=== PATIENT | male | born 1965 | race Caucasian/White ===

== ENCOUNTER 2017-03-30 04:19 | Emergency (ER) | payer MEDICARE, MEDICAID ==
[~2017-03-30] VITALS: Ht 165.1 cm; Wt 82.0 kg
[~2017-03-30 04:19] MED LIST: AMLO2.5T45 PO; ASPI-1159 PO; ATOR-2 PO; FAMO20TA8 PO; METO100T16 PO; ONDA8TAB6 PO; PHEN100C12; VALP250C PO
[2017-03-30] MEDS ORDERED: PROCHLORPERAZINE MALEATE 10MG TABLET PO ONE (05:00)
[2017-03-30] MEDS ORDERED: DEXAMETHASONE 10 MG/ML VIAL IV ONE (05:00)
[2017-03-30] MEDS ORDERED: KETOROLAC 30MG/ML VIAL IV ONE (05:00)
[2017-03-30] MEDS ORDERED: DIPHENHYDRAMINE 50MG/ML VIAL IV ONE (05:00)
[2017-03-30 06:25] VITALS: BP 142/77
== END 2017-03-30 06:29 | disposition home or self-care (01) ==
LOC: ER 04:19
DX: R51 Headache (principal); E11.9 Type 2 diabetes mellitus without complications; I10 Essential (primary) hypertension; Z79.82 Long term (current) use of aspirin; Z86.73 Personal history of transient ischemic attack (TIA), and cerebral infarction without residual deficits
CPT/HCPCS: 96374; 96375; 99284; J1100; J1200; J1885; Q0164

== ENCOUNTER 2018-03-09 20:44 | Inpatient (IN) | payer MEDICARE, MEDICAID, OTHER ==
[~2018-03-09] VITALS: Ht 165.1 cm; Wt 74.8 kg
[2018-03-09 21:41] LABS: BASOPHILS % 0.6 % (0.0-2.0); EOSINOPHILS % 0.8 % (0.0-5.0); HEMATOCRIT. 41.5 % (42.0-52.0); HEMOGLOBIN. 14.6 g/dL (14.0-18.0); LYMPHOCYTES % 24.3 % (20.0-50.0); MEAN CORPUSCULAR HEMOGLOBIN 30.8 pg (28.0-32.0); MEAN CORPUSCULAR VOLUME 87.8 fL (80.0-94.0); MEAN PLATELET VOLUME 8.8 fl (7.4-10.4); MONOCYTES % 6.8 % (2.0-8.0); NEUTROPHILS % 67.5 % (40.0-76.0); PLATELET 219 x1000/uL (130-400); RED BLOOD CELL COUNT 4.73 mill/uL (4.7-6.1); RED CELL DISTRIBUTION WIDTH 12.6 % (11.6-14.6)
[2018-03-09 21:46] LABS: CHLORIDE 108 mEq/L (98-107)
[2018-03-09] MEDS ORDERED: ONDANSETRON HCL 4MG/2ML INJ IV STA (22:53)
[2018-03-09] MEDS ORDERED: ENALAPRIL 2.5MG/2ML VIAL 2ML IV ONE (23:00)
[2018-03-09] MEDS ORDERED: ASPIRIN 81MG TABLET PO ONE (23:00)
[2018-03-09] MEDS ORDERED: MORPHINE SULFATE 10 MG/ML CPJ IV ONE (23:00)
[2018-03-10] VITALS (7 sets, daily range): BP systolic 138–176; BP diastolic 85–92
[2018-03-10] MEDS ORDERED: DIPHENHYDRAMINE 50MG/ML VIAL IV PRN (00:45)
[2018-03-10] MEDS ORDERED: ACETAMINOPHEN 650MG/20.3ML UDC GT PRN (00:45)
[2018-03-10] MEDS ORDERED: NA PHOS,M-B/NA PHOS,DI-BA ENEMA 118ML PR PRN (00:45)
[2018-03-10] MEDS ORDERED: ONDANSETRON HCL 4MG/2ML INJ IV PRN (00:45)
[2018-03-10] MEDS ORDERED: IPRATROPIUM/ALBUTEROL 0.5-3(2.5)MG/3ML NEB INH PRN (00:45)
[2018-03-10] MEDS ORDERED: HYDROCODONE/ACETAMINOPHEN 5/325MG TABLET PO PRN (00:45)
[2018-03-10] MEDS ORDERED: GUAIFENESIN 200MG/10ML SUGAR FREE UDC PO PRN (00:45)
[2018-03-10] MEDS ORDERED: DOCUSATE SODIUM 100MG CAPSULE PO PRN (00:45)
[2018-03-10] MEDS ORDERED: ACETAMINOPHEN 650MG SUPP PR PRN (00:45)
[2018-03-10] MEDS: CLONIDINE 0.1MG TABLET PO PRN (01:29)
[2018-03-10] MEDS ORDERED: IOHEXOL-350 100 ML BOTTLE ONE (02:12)
[2018-03-10 02:22] LABS: CLARITY URINE CLEAR (CLEAR); COLOR URINE YELLOW (YELLOW); KETONES URINE NEGATIVE (NEGATIVE); LEUKOCYTE ESTERASE URINE NEGATIVE (NEGATIVE); NITRITE URINE NEGATIVE (NEGATIVE); OCCULT BLOOD URINE 1+ (NEGATIVE); PROTEIN URINE NEGATIVE (NEGATIVE); SPECIFIC GRAVITY URINE 1.011 (1.005-1.030)
[2018-03-10 02:34] LABS: *AMPHETAMINES SCREEN URINE NEGATIVE (NEGATIVE); *BARBITURATES SCREEN URINE NEGATIVE (NEGATIVE); *BENZODIAZEPINES SCREEN URINE NEGATIVE (NEGATIVE); *COCAINE SCREEN URINE NEGATIVE (NEGATIVE); METHADONE URINE SCREEN NEGATIVE (NEGATIVE)
[2018-03-10 02:35] LABS: CANNABINOID URINE SCREEN NEGATIVE (NEGATIVE); OPIATES URINE SCREEN NEGATIVE (NEGATIVE); PHENCYCLIDINE URINE SCREEN NEGATIVE (NEGATIVE)
[2018-03-10] MEDS ORDERED: MEDICATION NOT ON FORMULARY EA (Aspirin (Aspirin Low Dose) 1 TAB) PO SCH (10:45)
[2018-03-10] MEDS ORDERED: MEDICATION NOT ON FORMULARY EA (Amlodipine Besylate 1 TAB) PO SCH (10:45)
[2018-03-10] MEDS ORDERED: MEDICATION NOT ON FORMULARY EA (Atorvastatin Calcium 1 TAB) PO SCH (10:45)
[2018-03-10 11:18] LABS: CREATINE KINASE 52 IU/L (39-308)
[2018-03-10 11:19] LABS: CREATINE KINASE MB FRACTION < 1.0 ng/mL (0.5-3.6)
[2018-03-10] MEDS: PHENYTOIN SODIUM EXTENDED 100MG CAPSULE PO SCH (11:46)
[2018-03-10] MEDS: ASPIRIN 81MG TABLET PO SCH (11:47)
[2018-03-10] MEDS: VALPROIC ACID 250MG CAPSULE PO SCH (11:47)
[2018-03-10] MEDS: AMLODIPINE 2.5MG TABLET PO SCH (11:47)
[2018-03-10] MEDS: SODIUM CHLORIDE 0.9% INJ 3ML FLUSH IVF SCH ×2 (14:32→23:59)
[2018-03-10] MEDS ORDERED: KEPP500 MT (15:37)
[2018-03-10] MEDS ORDERED: GLIP1TAB5 MT (15:40)
[2018-03-10] MEDS ORDERED: BENA40TA9 MT (15:40)
[2018-03-10 15:46] LABS: BASOPHILS % 0.7 % (0.0-2.0); EOSINOPHILS % 1.3 % (0.0-5.0); HEMATOCRIT. 43.6 % (42.0-52.0); LYMPHOCYTES % 24.6 % (20.0-50.0); MEAN CORPUSCULAR HEMOGLOBIN 30.4 pg (28.0-32.0); MEAN CORPUSCULAR VOLUME 88.8 fL (80.0-94.0); MEAN PLATELET VOLUME 9.2 fl (7.4-10.4); MONOCYTES % 9.3 % (2.0-8.0); NEUTROPHILS % 64.1 % (40.0-76.0); PLATELET 213 x1000/uL (130-400); RED BLOOD CELL COUNT 4.91 mill/uL (4.7-6.1); RED CELL DISTRIBUTION WIDTH 12.8 % (11.6-14.6)
[2018-03-10 16:04] LABS: CHLORIDE 105 mEq/L (98-107)
[2018-03-10 16:17] LABS: CREATINE KINASE 62 IU/L (39-308)
[2018-03-10 16:19] LABS: CREATINE KINASE MB FRACTION < 1.0 ng/mL (0.5-3.6)
[2018-03-10] MEDS: ATORVASTATIN CALCIUM 40MG TABLET PO SCH (20:18)
[2018-03-10] MEDS: HYDROCODONE/ACETAMINOPHEN 10/325MG TABLET PO PRN (20:19)
[2018-03-11] VITALS (7 sets, daily range): BP systolic 130–177; BP diastolic 80–98
[2018-03-11] MEDS: HYDROCODONE/ACETAMINOPHEN 10/325MG TABLET PO PRN (00:16)
[2018-03-11] MEDS: CLONIDINE 0.1MG TABLET PO PRN ×3 (00:17→17:36)
[2018-03-11] MEDS: SODIUM CHLORIDE 0.9% INJ 3ML FLUSH IVF SCH ×3 (05:28→21:00)
[2018-03-11 07:26] LABS: CHLORIDE 103 mEq/L (98-107)
[2018-03-11 07:29] LABS: BASOPHILS % 0.5 % (0.0-2.0); EOSINOPHILS % 0.7 % (0.0-5.0); HEMATOCRIT. 43.9 % (42.0-52.0); HEMOGLOBIN. 15.1 g/dL (14.0-18.0); LYMPHOCYTES % 22.3 % (20.0-50.0); MEAN CORPUSCULAR HEMOGLOBIN 30.3 pg (28.0-32.0); MEAN CORPUSCULAR VOLUME 87.8 fL (80.0-94.0); MONOCYTES % 8.8 % (2.0-8.0); NEUTROPHILS % 67.7 % (40.0-76.0); PLATELET 239 x1000/uL (130-400); RED CELL DISTRIBUTION WIDTH 12.8 % (11.6-14.6)
[2018-03-11 07:36] LABS: LDL CHOLESTEROL 160 mg/dL (5-100)
[2018-03-11 07:38] LABS: HDL CHOLESTEROL 41 mg/dL (40-59)
[2018-03-11] MEDS: ASPIRIN 81MG TABLET PO SCH (08:56)
[2018-03-11] MEDS: AMLODIPINE 2.5MG TABLET PO SCH (08:56)
[2018-03-11] MEDS: VALPROIC ACID 250MG CAPSULE PO SCH (08:56)
[2018-03-11] MEDS: PHENYTOIN SODIUM EXTENDED 100MG CAPSULE PO SCH (08:56)
[2018-03-11] MEDS ORDERED: GLIPIZIDE MT SCH (11:00)
[2018-03-11] MEDS ORDERED: MEDICATION NOT ON FORMULARY EA (Benazepril Hcl 1 TAB) MT SCH (11:00)
[2018-03-11] MEDS ORDERED: METFORMIN HCL MT SCH (11:00)
[2018-03-11] MEDS: GLIPIZIDE 5MG TABLET PO SCH ×2 (11:00→17:10)
[2018-03-11] MEDS: BENAZEPRIL 10MG TABLET PO SCH (11:00)
[2018-03-11] MEDS: METFORMIN HCL 500MG TABLET PO SCH ×2 (11:00→17:10)
[2018-03-11] MEDS ORDERED: [UNRECOGNIZED DRUG - OTHER] MT SCH (11:00)
[2018-03-11] MEDS: ATORVASTATIN CALCIUM 40MG TABLET PO SCH (21:00)
[2018-03-12] VITALS: BP 140/89
[2018-03-12 04:00] VITALS: BP 131/80
[2018-03-12] MEDS: METFORMIN HCL 500MG TABLET PO SCH ×2 (06:22→17:31)
[2018-03-12] MEDS: GLIPIZIDE 5MG TABLET PO SCH ×2 (06:22→17:31)
[2018-03-12] MEDS: SODIUM CHLORIDE 0.9% INJ 3ML FLUSH IVF SCH ×3 (06:22→21:01)
[2018-03-12 08:00] VITALS: BP 153/95
[2018-03-12] MEDS: PHENYTOIN SODIUM EXTENDED 100MG CAPSULE PO SCH (09:21)
[2018-03-12] MEDS: ASPIRIN 81MG TABLET PO SCH (09:21)
[2018-03-12] MEDS: BENAZEPRIL 10MG TABLET PO SCH (09:21)
[2018-03-12] MEDS: VALPROIC ACID 250MG CAPSULE PO SCH (09:21)
[2018-03-12] MEDS: AMLODIPINE 2.5MG TABLET PO SCH (09:21)
[2018-03-12 12:09] VITALS: BP 147/91
[2018-03-12 15:47] VITALS: BP 143/97
[2018-03-12 20:00] VITALS: BP 149/97
[2018-03-12] MEDS: ATORVASTATIN CALCIUM 40MG TABLET PO SCH (21:01)
[2018-03-12] MEDS: ACETAMINOPHEN 325MG TABLET PO PRN (21:52)
[2018-03-13] VITALS: BP 145/94
[2018-03-13 04:00] VITALS: BP 158/89
[2018-03-13] MEDS: GLIPIZIDE 5MG TABLET PO SCH ×2 (06:20→17:22)
[2018-03-13] MEDS: SODIUM CHLORIDE 0.9% INJ 3ML FLUSH IVF SCH ×3 (06:20→21:37)
[2018-03-13] MEDS: METFORMIN HCL 500MG TABLET PO SCH ×2 (06:20→17:20)
[2018-03-13 08:00] VITALS: BP 166/98
[2018-03-13] MEDS: ASPIRIN 81MG TABLET PO SCH (09:14)
[2018-03-13] MEDS: VALPROIC ACID 250MG CAPSULE PO SCH (09:14)
[2018-03-13] MEDS: PHENYTOIN SODIUM EXTENDED 100MG CAPSULE PO SCH (09:14)
[2018-03-13] MEDS: AMLODIPINE 2.5MG TABLET PO SCH (09:15)
[2018-03-13] MEDS: BENAZEPRIL 10MG TABLET PO SCH (09:19)
[2018-03-13 12:00] VITALS: BP 157/77
[2018-03-13 20:00] VITALS: BP 158/104
[2018-03-13] MEDS: ATORVASTATIN CALCIUM 40MG TABLET PO SCH (21:11)
[2018-03-13] MEDS: CLONIDINE 0.1MG TABLET PO PRN (21:11)
[2018-03-14] VITALS: BP 117/74
[2018-03-14 04:00] VITALS: BP 136/85
[2018-03-14] MEDS: SODIUM CHLORIDE 0.9% INJ 3ML FLUSH IVF SCH ×3 (05:11→23:00)
[2018-03-14 08:00] VITALS: BP_SYST 127; BP_SYST 153; BP_DIAS 84; BP_DIAS 88
[2018-03-14] MEDS: GLIPIZIDE 5MG TABLET PO SCH ×2 (08:10→18:09)
[2018-03-14] MEDS: METFORMIN HCL 500MG TABLET PO SCH ×2 (08:10→18:09)
[2018-03-14] MEDS: VALPROIC ACID 250MG CAPSULE PO SCH (09:40)
[2018-03-14] MEDS: ASPIRIN 81MG TABLET PO SCH (09:40)
[2018-03-14] MEDS: PHENYTOIN SODIUM EXTENDED 100MG CAPSULE PO SCH (09:41)
[2018-03-14] MEDS: BENAZEPRIL 10MG TABLET PO SCH (09:42)
[2018-03-14] MEDS: AMLODIPINE 2.5MG TABLET PO SCH (09:43)
[2018-03-14 11:55] VITALS: BP 133/85
[2018-03-14 16:00] VITALS: BP 153/104
[2018-03-14 20:00] VITALS: BP 138/87
[2018-03-14] MEDS: ATORVASTATIN CALCIUM 40MG TABLET PO SCH (20:34)
[2018-03-14] MEDS: HYDROCODONE/ACETAMINOPHEN 10/325MG TABLET PO PRN (20:35)
[2018-03-15] VITALS: BP 156/94
[2018-03-15 04:00] VITALS: BP 144/90
[2018-03-15] MEDS: SODIUM CHLORIDE 0.9% INJ 3ML FLUSH IVF SCH ×3 (06:27→21:23)
[2018-03-15 08:00] VITALS: BP 134/87
[2018-03-15] MEDS: METFORMIN HCL 500MG TABLET PO SCH ×2 (09:16→18:24)
[2018-03-15] MEDS: VALPROIC ACID 250MG CAPSULE PO SCH (09:16)
[2018-03-15] MEDS: ASPIRIN 81MG TABLET PO SCH (09:16)
[2018-03-15] MEDS: PHENYTOIN SODIUM EXTENDED 100MG CAPSULE PO SCH (09:16)
[2018-03-15] MEDS: GLIPIZIDE 5MG TABLET PO SCH ×2 (09:17→18:24)
[2018-03-15] MEDS: BENAZEPRIL 10MG TABLET PO SCH (09:21)
[2018-03-15] MEDS: AMLODIPINE 2.5MG TABLET PO SCH (09:21)
[2018-03-15 12:00] VITALS: BP 135/98
[2018-03-15 16:00] VITALS: BP 135/84
[2018-03-15] MEDS: MAGNESIUM/ALUMINUM HYDROXIDE/SIMETHICONE 30ML UDC PO PRN (18:27)
[2018-03-15 20:00] VITALS: BP 131/83
[2018-03-15] MEDS: ATORVASTATIN CALCIUM 40MG TABLET PO SCH (20:42)
[2018-03-16] VITALS: BP 134/84
[2018-03-16 04:00] VITALS: BP 147/82
[2018-03-16] MEDS: GLIPIZIDE 5MG TABLET PO SCH ×2 (06:20→18:12)
[2018-03-16] MEDS: SODIUM CHLORIDE 0.9% INJ 3ML FLUSH IVF SCH ×3 (06:20→21:31)
[2018-03-16] MEDS: METFORMIN HCL 500MG TABLET PO SCH ×2 (06:20→18:12)
[2018-03-16 08:00] VITALS: BP 131/91
[2018-03-16] MEDS: PHENYTOIN SODIUM EXTENDED 100MG CAPSULE PO SCH (09:00)
[2018-03-16] MEDS: BENAZEPRIL 10MG TABLET PO SCH (09:01)
[2018-03-16] MEDS: ASPIRIN 81MG TABLET PO SCH (09:01)
[2018-03-16] MEDS: VALPROIC ACID 250MG CAPSULE PO SCH (09:01)
[2018-03-16] MEDS: AMLODIPINE 2.5MG TABLET PO SCH (09:02)
[2018-03-16] MEDS: MAGNESIUM/ALUMINUM HYDROXIDE/SIMETHICONE 30ML UDC PO PRN (11:50)
[2018-03-16 12:00] VITALS: BP 134/90
[2018-03-16 16:00] VITALS: BP 130/88
[2018-03-16 20:00] VITALS: BP 130/83
[2018-03-16] MEDS: ATORVASTATIN CALCIUM 40MG TABLET PO SCH (21:31)
[2018-03-16] MEDS: ACETAMINOPHEN 325MG TABLET PO PRN (21:39)
[2018-03-17] VITALS: BP 132/87
[2018-03-17 04:00] VITALS: BP 136/98
[2018-03-17] MEDS: METFORMIN HCL 500MG TABLET PO SCH ×2 (06:25→17:39)
[2018-03-17] MEDS: GLIPIZIDE 5MG TABLET PO SCH ×2 (06:25→17:39)
[2018-03-17] MEDS: SODIUM CHLORIDE 0.9% INJ 3ML FLUSH IVF SCH ×2 (06:25→20:39)
[2018-03-17 08:00] VITALS: BP 164/91
[2018-03-17] MEDS: VALPROIC ACID 250MG CAPSULE PO SCH (09:33)
[2018-03-17] MEDS: BENAZEPRIL 10MG TABLET PO SCH (09:33)
[2018-03-17] MEDS: PHENYTOIN SODIUM EXTENDED 100MG CAPSULE PO SCH (09:33)
[2018-03-17] MEDS: AMLODIPINE 2.5MG TABLET PO SCH (09:33)
[2018-03-17] MEDS: ASPIRIN 81MG TABLET PO SCH (09:34)
[2018-03-17 12:28] VITALS: BP 159/84
[2018-03-17 16:00] VITALS: BP 156/81
[2018-03-17 20:00] VITALS: BP 147/85
[2018-03-17] MEDS: ATORVASTATIN CALCIUM 40MG TABLET PO SCH (20:39)
[2018-03-18] VITALS: BP 151/90
[2018-03-18 04:00] VITALS: BP 145/79
[2018-03-18] MEDS: GLIPIZIDE 5MG TABLET PO SCH ×2 (06:29→18:43)
[2018-03-18] MEDS: METFORMIN HCL 500MG TABLET PO SCH ×2 (06:30→18:43)
[2018-03-18] MEDS: SODIUM CHLORIDE 0.9% INJ 3ML FLUSH IVF SCH ×3 (06:30→21:33)
[2018-03-18 08:00] VITALS: BP 156/58
[2018-03-18] MEDS: PHENYTOIN SODIUM EXTENDED 100MG CAPSULE PO SCH (10:03)
[2018-03-18] MEDS: AMLODIPINE 2.5MG TABLET PO SCH (10:06)
[2018-03-18] MEDS: VALPROIC ACID 250MG CAPSULE PO SCH (10:07)
[2018-03-18] MEDS: BENAZEPRIL 10MG TABLET PO SCH (10:07)
[2018-03-18] MEDS: ASPIRIN 81MG TABLET PO SCH (10:07)
[2018-03-18 20:00] VITALS: BP 161/100
[2018-03-18] MEDS: ATORVASTATIN CALCIUM 40MG TABLET PO SCH (21:32)
[2018-03-19] VITALS (7 sets, daily range): BP systolic 124–171; BP diastolic 83–101
[2018-03-19] MEDS: SODIUM CHLORIDE 0.9% INJ 3ML FLUSH IVF SCH ×3 (06:12→22:21)
[2018-03-19] MEDS: PHENYTOIN SODIUM EXTENDED 100MG CAPSULE PO SCH (08:16)
[2018-03-19] MEDS: VALPROIC ACID 250MG CAPSULE PO SCH (08:17)
[2018-03-19] MEDS: AMLODIPINE 2.5MG TABLET PO SCH (08:17)
[2018-03-19] MEDS: BENAZEPRIL 10MG TABLET PO SCH (08:17)
[2018-03-19] MEDS: GLIPIZIDE 5MG TABLET PO SCH ×2 (08:19→17:06)
[2018-03-19] MEDS: ASPIRIN 81MG TABLET PO SCH (08:19)
[2018-03-19] MEDS: METFORMIN HCL 500MG TABLET PO SCH ×2 (08:19→17:06)
[2018-03-19] MEDS: ATORVASTATIN CALCIUM 40MG TABLET PO SCH (22:21)
[2018-03-20 06:00] VITALS: BP 140/89
[2018-03-20] MEDS: SODIUM CHLORIDE 0.9% INJ 3ML FLUSH IVF SCH (06:32)
[2018-03-20 08:00] VITALS: BP 142/96
[2018-03-20] MEDS: PHENYTOIN SODIUM EXTENDED 100MG CAPSULE PO SCH (08:31)
[2018-03-20] MEDS: METFORMIN HCL 500MG TABLET PO SCH (08:31)
[2018-03-20] MEDS: ASPIRIN 81MG TABLET PO SCH (08:31)
[2018-03-20] MEDS: VALPROIC ACID 250MG CAPSULE PO SCH (08:31)
[2018-03-20] MEDS: GLIPIZIDE 5MG TABLET PO SCH (08:31)
[2018-03-20] MEDS: BENAZEPRIL 10MG TABLET PO SCH (08:31)
[2018-03-20] MEDS: AMLODIPINE 2.5MG TABLET PO SCH (08:32)
[2018-03-20 10:38] VITALS: BP 142/75
== END 2018-03-20 11:46 | DRG 203 ==
LOC: ER 20:44 → 5WST 03-10 00:09 → EDBEDREQ 03-10 00:11 → ENRESERV 03-10 00:44 → 5WST 03-10 03:55
PROVIDERS: ADMIT Family Medicine; ATTEND Family Medicine
DX: R07.89 Other chest pain (principal); G82.50 Quadriplegia, unspecified; G40.909 Epilepsy, unspecified, not intractable, without status epilepticus; I10 Essential (primary) hypertension; E78.5 Hyperlipidemia, unspecified; E11.9 Type 2 diabetes mellitus without complications; Z82.49 Family history of ischemic heart disease and other diseases of the circulatory system; Z85.841 Personal history of malignant neoplasm of brain; I69.365 Other paralytic syndrome following cerebral infarction, bilateral
CPT/HCPCS: 36415; 71045; 71275; 80061; 80305; 82550; 82553; 82962; 83880; 84484; 93005; 93306; 93970; 96374; 96375; 97162; 99285; J1200; J2270; J2405; J3490; Q9967

== ENCOUNTER 2019-01-31 07:25 | Emergency (ER) | payer MEDICARE, MEDICAID ==
[~2019-01-31] VITALS: Ht 170.2 cm; Wt 77.2 kg
[~2019-01-31 07:25] MED LIST changes: -ASPI-1159 PO; +ASPI-1393 PO; +BENA40TA9 MT; -FAMO20TA8 PO; +GLIP1TAB5 MT; +KEPP500 MT; -METO100T16 PO
[2019-01-31] MEDS ORDERED: SODIUM CHLORIDE 0.9% 1,000 ML IV ONE (07:27)
[2019-01-31 08:21] LABS: BASOPHILS % 0.6 % (0.0-2.0); EOSINOPHILS % 0.9 % (0.0-5.0); HEMATOCRIT. 39.8 % (42.0-52.0); LYMPHOCYTES % 23.1 % (20.0-50.0); MEAN CORPUSCULAR HEMOGLOBIN 30.6 pg (28.0-32.0); MEAN CORPUSCULAR VOLUME 87.1 fL (80.0-94.0); MEAN PLATELET VOLUME 9.1 fl (7.4-10.4); MONOCYTES % 4.4 % (2.0-8.0); PLATELET 220 x1000/uL (130-400); RED BLOOD CELL COUNT 4.57 mill/uL (4.7-6.1); RED CELL DISTRIBUTION WIDTH 12.4 % (11.6-14.6)
[2019-01-31 08:27] LABS: CHLORIDE 106 mEq/L (98-107)
[2019-01-31 08:31] LABS: INR 1.1; PROTHROMBIN TIME 11.1 sec (9.6-11.0)
[2019-01-31 08:32] LABS: ETHANOL BLOOD < 10 mg/dL
[2019-01-31 08:35] LABS: LDL CHOLESTEROL 134 mg/dL (5-100)
[2019-01-31 08:36] LABS: CREATINE KINASE 50 IU/L (39-308)
[2019-01-31] MEDS ORDERED: ENALAPRIL 2.5MG/2ML VIAL 2ML IV ONE (09:30)
[2019-01-31 09:54] LABS: CLARITY URINE CLEAR (CLEAR); COLOR URINE YELLOW (YELLOW); KETONES URINE NEGATIVE (NEGATIVE); LEUKOCYTE ESTERASE URINE NEGATIVE (NEGATIVE); NITRITE URINE NEGATIVE (NEGATIVE); OCCULT BLOOD URINE 1+ (NEGATIVE); PROTEIN URINE NEGATIVE (NEGATIVE); SPECIFIC GRAVITY URINE 1.047 (1.005-1.030)
[2019-01-31] MEDS ORDERED: ENALAPRIL 1.25MG/ML VIAL 1ML IV NR (10:45)
[2019-01-31 10:46] LABS: CANNABINOID URINE SCREEN NEGATIVE (NEGATIVE); PHENCYCLIDINE URINE SCREEN NEGATIVE (NEGATIVE)
[2019-01-31 10:47] LABS: *AMPHETAMINES SCREEN URINE NEGATIVE (NEGATIVE); *BARBITURATES SCREEN URINE NEGATIVE (NEGATIVE); *BENZODIAZEPINES SCREEN URINE NEGATIVE (NEGATIVE); *COCAINE SCREEN URINE NEGATIVE (NEGATIVE); METHADONE URINE SCREEN NEGATIVE (NEGATIVE); OPIATES URINE SCREEN NEGATIVE (NEGATIVE)
[2019-01-31] MEDS ORDERED: ASPIRIN 325MG TABLET PO ONE (11:45)
[2019-01-31 14:19] VITALS: BP 138/93
== END 2019-01-31 14:32 | disposition short-term general hospital (02) ==
LOC: ER 07:32 → CANBEDREQ 10:03 → SUPCPDRO 11:03 → ER 14:32
DX: I63.9 Cerebral infarction, unspecified (principal); I10 Essential (primary) hypertension; R53.1 Weakness; R47.81 Slurred speech; E11.9 Type 2 diabetes mellitus without complications; Z79.82 Long term (current) use of aspirin; Z79.899 Other long term (current) drug therapy
CPT/HCPCS: 36415; 70450; 70496; 70498; 70551; 71045; 80053; 80165; 80185; 80305; 80320; 81003; 82550; 82962; 83721; 83880; 84484; 85025; 85610; 93005; 96374; 99291; J3490; J7030; G0480